=== PATIENT | female | born 1960 | race Caucasian/White ===

== ENCOUNTER → 2017-12-27 | Outpatient (CLI) | payer OTHER ==
--- NOTE | 2017-12-27 08:51 | DIAGNOSTIC IMAGING REPORT ---
LUMBAR SPINE MRI HISTORY: M54.17 Lumbosacral radiculopathy at L4 Acute L4 radiculopathy TECHNIQUE: Multiplanar multisequence MRI of the lumbar spine was performed without the use of contrast. COMPARISON: Lumbar spine MRI 01/29/2014. FINDINGS: For the purpose of the report the L5-S1 disc space will be located on axial image 23 of 25. Mild levoscoliosis. Mild disc space narrowing at L2-L3, L3-L4, and L5-S1. The conus terminates at the L1-L2 disc space level. Paraspinal soft tissues are unremarkable. Mild facet degenerative changes within the lumbar spine. Endplate signal abnormality at L4-L5 and L5-S1 is likely due to the degenerative change. No fracture or subluxation. L1-L2: No significant central canal or neural foraminal narrowing. L2-L3: Small broad-based posterior disc bulge. No significant central canal or neural foraminal narrowing. L3-L4: Small broad-based posterior disc bulge resulting in moderate right neural foraminal narrowing. No left-sided neural foraminal narrowing. Mild central canal narrowing. L4-L5: Small broad-based posterior disc bulge with a left foraminal focal disc protrusion. This abuts and compresses the exiting left L4 nerve root and results in moderate left-sided neural foraminal narrowing. No significant central canal narrowing. Mild right-sided neural foraminal narrowing. L5-S1: Small broad-based posterior disc bulge with a small focal central disc protrusion. This is decreased in size in the interval. No associated central canal narrowing. There is mild right and moderate left neural foraminal narrowing. IMPRESSION: 1. A left foraminal focal disc protrusion at L4-L5 which abuts and compresses the exiting left L4 nerve root. 2. Decrease in size in the small focal central disc extrusion at L5-S1 without significant central canal narrowing. 3. Multilevel bilateral neural foraminal narrowing as described above. 4. Mild levoscoliosis. Electronically signed by: Logan Euceda M.D. 12/27/2017 8:50 AM Dictated Date/Time: 12/27/2017 8:29 AM
== END | disposition home or self-care (01) ==
LOC: C.MRI 07:39
PROVIDERS: ATTEND Psychiatry & Neurology Neurology
DX: M54.17 Radiculopathy, lumbosacral region (principal); M48.061 Spinal stenosis, lumbar region without neurogenic claudication